=== PATIENT | male | born 1940 | race Caucasian/White ===

== ENCOUNTER 2017-04-12 08:22 | Observation (INO) | payer MEDICARE ==
[2017-04-12] MEDS ORDERED: Lidocaine 1% (PF) 30 ML VIAL ONE (10:04)
[2017-04-12] MEDS ORDERED: Adacel (T-DAP) 0.5 ML VIAL ONE ×2 (10:46→11:39)
--- NOTE | 2017-04-12 11:30 | CT ---
CT OF THE CERVICAL SPINE WITHOUT CONTRAST: Date: 04/12/17 COMPARISON: None. HISTORY: Fall this morning with neck pain. TECHNIQUE: Multiple contiguous axial images were obtained in a CT of the cervical spine without contrast. Sagit sukh and coronal reformats were performed. FINDINGS: There is an oblique fracture through the odontoid process of C2. This is moderately displaced. The o ther vertebral bodies demonstrate normal height and alignment without other fractures or dislocation s. Moderate degenerative changes are seen throughout the cervical spine. No prevertebral soft tissue swelling is seen. The posterior facet of C1 on C2 is malaligned with C2 being displaced anteriorly in relation to C1. The other posterior facets are well aligned. Normal alignment of the skull base with the cervical sp ine is seen. There are emphysematous changes in the lung apices. IMPRESSION: Odontoid process fracture with malalignment of posterior facets at C1-2. Dr. Alfredo notified of the findings at 1008 hours on 04/12/17. CODE CR. POS: [facility]
[2017-04-12 11:39] LABS: #Eosinphils 0.2 thou/uL (0.0-0.7); #Monocytes 1.1 thou/uL (0.11-0.59); #Neutrophils 11.6 thou/uL (1.40-6.50); %Basophils 0.2 % (0.0-1.0); %Eosinophils 1.4 % (0.0-10.0); %Lymphocytes 7.4 % (21.0-51.0); Hematocrit 43.8 % (42.0-52.0); Mean Platelet Volume 6.8 fL (7.4-10.4); Red Blood Cell (RBC) Count 4.31 mill/uL (4.70-6.10); White Blood Cell (WBC) Count 13.9 thou/uL (4.8-10.8)
[2017-04-12] MEDS ORDERED: Acetaminophen 325 MG TAB PO PRN (11:42)
[2017-04-12] MEDS ORDERED: Mag-Al 1200 mg/1200 mg/30 ML UDCUP PO PRN (11:42)
[2017-04-12] MEDS ORDERED: Milk Of Magnesia 30 ML UDCUP PO PRN (11:42)
[2017-04-12] MEDS ORDERED: Bisacodyl 5 MG TAB PO PRN (11:42)
[2017-04-12] MEDS ORDERED: Fentanyl 100 MCG/2 ML VIAL ONE (11:46)
[2017-04-12] MEDS ORDERED: traMADol HCl 50 MG TAB PO PRN (11:50)
[2017-04-12] MEDS ORDERED: tiZANidine HCl 4 MG TAB PO PRN (11:51)
[2017-04-12 12:05] LABS: ALT (SGPT) 10 U/L (8-55); AST (SGOT) 31 U/L (5-34); Alkaline Phosphatase 108 U/L (40-150); Anion Gap 12 mmol/L (10-20); BUN (Urea Nitrogen) 29 mg/dL (8.4-25.7); Bilirubin, Total 0.7 mg/dL (0.2-1.2); Calc. Creatinine Clearance 0 mL/min (70-130); Calcium 9.4 mg/dL (7.8-10.44); Carbon Dioxide 24 mmol/L (23-31); Chloride 107 mmol/L (98-107); Estimated GFR-MDRD 67; Globulin 4.1 g/dL (2.4-3.5); Protein, Total 7.5 g/dL (5.8-8.1)
--- NOTE | 2017-04-12 13:10 | CT ---
CT OF THE BRAIN WITHOUT CONTRAST: Date: 04/12/17 COMPARISON: None. HISTORY: Fall, fell face-first. Head trauma. TECHNIQUE: Multiple contiguous axial images were obtained in a CT of the brain without contrast. Coronal reform ats were performed. FINDINGS: The brain is normal in morphology and attenuation without focal lesions or confluent areas of infarc tion. There is no evidence of hydrocephalus, intracranial hemorrhage, or extra-axial fluid collectio n. Soft tissue swelling in the forehead. The underlying calvarium is unremarkable. The visualized paran jackie sinuses and mastoid air cells are well aerated. IMPRESSION: No evidence of acute intracranial abnormality. POS: [facility]
[2017-04-12] MEDS: Sodium Chloride 0.9% 1,000 ML IV SCH (14:08)
[2017-04-12] MEDS: HYDROcodone/Acetaminophen 5/325 mg Tablet PO PRN ×3 (14:09→23:04)
[2017-04-12 14:17] VITALS: BMI 14.2
--- NOTE | 2017-04-12 14:30 | HP ---
DATE OF SERVICE: 04/12/2017 This is a 30-minute initial hospital visit note, in which 30 minutes were spent in review of the robby ging record, evaluation, and examination of the patient, and formulation of plan. Greater than 50% of time was spent in counseling on Jay Mendoza, 1940. CHIEF COMPLAINT: Type 2 odontoid fracture, status post fall with hyperextension injury. HISTORY OF PRESENT ILLNESS: Mr. Mendoza is a very pleasant 76-year-old gentleman. He was going out t o get his newspaper and as soon as he was walking back he tripped over a raised piece of concrete in the ground and essentially face-planted, resulting in a hyperextension injury. He had the immediat e onset of neck pain and was brought in for further evaluation. CT demonstrates an oblique fracture with type 2 odontoid fracture pattern with significant multilevel spondylosis throughout the cervic al spine. The atlantodental interval is preserved while there is some malalignment. Overall, the f racture fragment remains approximated. The patient is in a trauma collar as I am seen him. PHYSICAL EXAMINATION: On exam, he is alert, appropriate. He has an abrasion over his nose and righ t supraorbital region that has been repaired with Dermabond. He follows commands in all 4 extremiti es and is neurologically intact. I replaced his trauma collar with an Roann collar and I educated [facility] he and the family in regards to the necessity of wearing this for the next 3 months at all times . We will arrange for a [place] collar and I have educated the family in regards to how to don and doff that collar when it is to be used for showering. IMPRESSION AND PLAN: We will arrange for a head CT as the patient is on a baby aspirin. He has bailey luis armando 3-vessel blockage and sees Dr. Diez. He was going to undergo cardiac catheterization in a couple weeks, but I would hold off on this given the patient's acute cervical fracture. If his head CT demonstrates intracranial blood products, I will likely want to admit him and just watch him ove rnight and hold the aspirin. If he does not have evidence of intracranial blood products, I would b e fine with him staying on aspirin and dismissal with a follow up in my clinic in 2 weeks including upright AP, lateral and open mouth odontoid cervical spine x-rays. Again, the family and the patien t understand that the collar duration is likely going to be at all times for the next 3 months. We will follow up on the head CT. DIAGNOSIS: Type 2 odontoid fracture, status post fall.
[2017-04-12] MEDS ORDERED: FLU VACC TS2017-18 (>65YR) 0.5 ML SYRINGE IM ONE (21:00)
[2017-04-12] MEDS ORDERED: Simvastatin 5 MG TAB PO SCH (21:00)
[2017-04-12] MEDS: Docusate 100 MG CAP PO SCH (21:19)
[2017-04-13] MEDS: Sodium Chloride 0.9% 1,000 ML IV SCH (01:18)
[2017-04-13] MEDS: Docusate 100 MG CAP PO SCH (08:02)
[2017-04-13] MEDS: HYDROcodone/Acetaminophen 5/325 mg Tablet PO PRN (08:03)
[2017-04-13] MEDS ORDERED: Mirtazapine 15 MG TAB PO SCH (09:00)
[2017-04-13 09:47] VITALS: BP 122/66; TEMP 98.1
--- NOTE | 2017-04-13 11:12 | CT ---
CT OF THE BRAIN WITHOUT CONTRAST: Date: 04/13/17 COMPARISON: 04/12/17. HISTORY: Fall, with acute subdural hemorrhage. TECHNIQUE: Multiple contiguous axial images were obtained in a CT of the brain without contrast. FINDINGS: There are calcifications seen along the falx. There is hyperdensity of the tentorium which likely al so represents calcifications. The slightly asymmetric increased density along the left aspect of the tentorium is stable and most likely represents calcifications rather than blood. There are a few sc attered hypodensities in the subcortical and periventricular white matter, likely secondary to small vessel ischemic disease. There is no evidence of hydrocephalus, intracranial hemorrhage, or extra-a xial fluid collection. The calvarium and overlying soft tissues are unremarkable. The visualized paranasal sinuses and mast oid air cells are well aerated. IMPRESSION: No evidence of acute intracranial abnormality. POS: [facility]
--- NOTE | 2017-04-13 13:12 | PRG ---
DATE OF SERVICE: 04/13/2017 Mr. Mendoza is hospital day #2, having sustained a fall causing a type 2 odontoid fracture and a very small tentorial subdural hematoma. The patient does have complaints of posterior neck pain and a sl ight amount of headache, but otherwise states he is improved from yesterday. He has been wearing hi s [place] collar at all times. He remained at neurologic baseline with good strength in the bilateral upper and bilateral lower extremities. His repeat head CT from today shows stable tentorial subdur al hematoma with perhaps the new component of right frontal subdural hematoma. I discussed this wit h the patient and his at bedside. At this time, he is stable for discharge. We will arrange f or appropriate outpatient followup appointments. He needs to wear his [place] collar at all times and I have ordered a [place] collar for showers. We also order a rolling walker and shower chair for him. Appropriate pain medications are also written for the patient. Discussed activity restric tions with the patient and his as well as nursing staff. We will arrange for a 2-week followup appointment with a noncontrast head CT and upright AP and lateral cervical spine and open mouth odo ntoid cervical spine x-rays. Again, although this was discussed with the patient and his and t efrem are pleased with his outcome thus far. Also, of note, the patient's potassium was 5.4 yesterday , but a re-draw this morning shows that it is trending downward at 4.5 and within normal range. He is stable for discharge.
--- NOTE | 2017-04-13 21:58 | DIS ---
DISCHARGE DIAGNOSES: 1. Neck pain, status post fall with type 2 odontoid fracture. 2. Tentorial subdural hematoma. 3. Hyperkalemia. HOSPITAL COURSE: Mr. Mendoza was admitted to [facility] from the emergency room on 7 having sustained a fall at his home. He subsequently sustained a small tentorial subdural hematom a and a type 2 odontoid fracture. He was placed in an [place] collar and his aspirin was held overnig ht. He was on the stroke unit overnight without significant events other than some hyperkalemia. Pollo fernandez lab work was redrawn on the morning of 04/13/2017 and shown to be 4.5 within the normal range. Pollo yanes also had a repeat head CT on 04/13/2017 showing a stable tentorial subdural hematoma with a new ve ry small component of right frontal subdural hematoma. The patient's pain was under satisfactory co ntrol at the time of discharge and appropriate post-injury restrictions were reviewed with the patie juanito and his . Appropriate outpatient followup appointments were scheduled with Neurosurgery and the patient was discharged home again in satisfactory condition. Ample opportunity was given to the patient and his to discuss their questions and concerns.
== END 2017-04-13 12:14 | disposition home or self-care (01) ==
LOC: ERS 08:22 → 2SE 13:24
PROVIDERS: ADMIT Surgery; ATTEND Surgery
DX: S12.110A Anterior displaced Type II dens fracture, initial encounter for closed fracture (principal); S06.5X0A Traumatic subdural hemorrhage without loss of consciousness, initial encounter; E87.5 Hyperkalemia; Z88.8 Allergy status to other drugs, medicaments and biological substances; Z79.899 Other long term (current) drug therapy; Z87.891 Personal history of nicotine dependence
CPT/HCPCS: 12011; 36415; 70450; 72125; 80053; 84132; 85025; 90471; 90682; 90715; 93005; 96361; 96374; G0008; G0378; J2001; J3010; Q2036

== ENCOUNTER 2017-04-16 11:39 | Inpatient (IN) | payer MEDICARE ==
[2017-04-16] MEDS ORDERED: Morphine 2 MG/ML SYRINGE ONE (11:56)
[2017-04-16] MEDS ORDERED: Ondansetron HCl/PF 4 MG/2 ML Vial ONE (11:56)
--- NOTE | 2017-04-16 12:22 | RAD ---
LEFT HIP TWO VIEWS: HISTORY: Injury. Slipped and fell. COMPARISON: None. FINDINGS: Intertrochanteric fracture of the left femur with minimal displacement. The obturator ring appears to be intact. IMPRESSION: Practically nondisplaced intertrochanteric fracture of the left femur. POS: [facility]
--- NOTE | 2017-04-16 12:23 | RAD ---
PELVIS ONE VIEW: HISTORY: Slipped and fell. Injury. COMPARISON: None. FINDINGS: An intertrochanteric fracture of the left femur without significant displacement. The obturator rin g is intact. IMPRESSION: Nondisplaced intertrochanteric fracture, left femur. POS: [facility]
[2017-04-16] MEDS ORDERED: Ondansetron ODT 4 MG TAB PO PRN (12:57)
[2017-04-16] MEDS ORDERED: Bisacodyl 10 MG SUPP PR PRN (12:57)
[2017-04-16] MEDS ORDERED: Milk Of Magnesia 30 ML UDCUP PO PRN (12:57)
[2017-04-16] MEDS ORDERED: traMADol HCl 50 MG TAB PO PRN ×2 (12:57)
[2017-04-16] MEDS ORDERED: Ondansetron HCl/PF 4 MG/2 ML Vial IVP PRN (12:57)
[2017-04-16] MEDS ORDERED: Fleet Enema 133 ML BOT PR PRN (12:57)
[2017-04-16] MEDS ORDERED: hydrALAZINE 20 MG/ML VIAL SLOW IVP PRN (13:04)
[2017-04-16] MEDS ORDERED: Cyclobenzaprine 10 MG TAB PO PRN (13:05)
--- NOTE | 2017-04-16 13:25 | RAD ---
PORTABLE AP CHEST: Date: 04-16-17 History: Pre-operative evaluation for hip fracture. Comparison: 10-21-16 FINDINGS: There is increased interstitial thickening involving the lungs bilaterally suggesting chronic inters titial fibrotic lung changes. There is a wedge shaped area of opacification in the right upper lobe and right lung apex which does represent an interval change from prior study on 10-21-16. This could be related to interval development of right upper lobe pneumonia. However, follow up to complete res olution is recommended. There is a ring like area of increased density in the right lung apex which could be related to overlying artifact. There is diffuse osteopenia. Cardiac silhouette and pulmonary vasculature are within normal limits. IMPRESSION: 1. Interval development of parenchymal opacity in the right upper lobe and right lung apex which may be related to interval development of pneumonia. Follow up to complete resolution is recommended to exclude neoplastic process. There was no parenchymal opacification seen in this region on study of 10-21-16. 2. Chronic interstitial fibrotic lung changes. Probable emphysematous changes in the upper lobes. 3. Ring like area of increased density right lung apex which could potentially represent overlying a rtifact and this cannot be further evaluated on this exam. 4. Diffuse osteopenia. POS: [facility]
[2017-04-16] MEDS ORDERED: ISOVUE-370 76%-LOCM 1 ML ONE (13:33)
[2017-04-16 13:46] LABS: #Eosinphils 0.1 thou/uL (0.0-0.7); #Lymphocytes 0.7 thou/uL (1.20-3.40); #Monocytes 1.2 thou/uL (0.11-0.59); #Neutrophils 9.1 thou/uL (1.40-6.50); %Basophils 0.1 % (0.0-1.0); %Eosinophils 0.5 % (0.0-10.0); %Lymphocytes 6.6 % (21.0-51.0); %Monocytes 10.8 % (0.0-10.0); Hematocrit 40.3 % (42.0-52.0); Mean Platelet Volume 6.8 fL (7.4-10.4); Red Blood Cell (RBC) Count 3.98 mill/uL (4.70-6.10); White Blood Cell (WBC) Count 11.1 thou/uL (4.8-10.8)
[2017-04-16 13:54] LABS: PTT 31.7 SEC (22.9-36.1)
[2017-04-16 14:06] LABS: Prothrombin Time 13.8 SEC (12.0-14.7)
[2017-04-16 14:12] LABS: ALT (SGPT) 12 U/L (8-55); AST (SGOT) 15 U/L (5-34); Alkaline Phosphatase 103 U/L (40-150); Anion Gap 7 mmol/L (10-20); BUN (Urea Nitrogen) 24 mg/dL (8.4-25.7); Bilirubin, Total 0.7 mg/dL (0.2-1.2); CK (CPK) 37 U/L (30-200); Calc. Creatinine Clearance 0 mL/min (70-130); Calcium 9.1 mg/dL (7.8-10.44); Carbon Dioxide 31 mmol/L (23-31); Chloride 101 mmol/L (98-107); Estimated GFR-MDRD 73; Globulin 3.5 g/dL (2.4-3.5); Protein, Total 6.7 g/dL (5.8-8.1)
--- NOTE | 2017-04-16 14:12 | CON ---
DATE OF CONSULTATION: 04/16/2017 CHIEF COMPLAINT: Left hip pain. HISTORY OF PRESENT ILLNESS: Mr. Mendoza is a 76-year-old male who has fallen. He fell last week duri ng at which time he sustained an odontoid fracture. He has been on [employer] since then. He lost h is balance, walking in his kitchen today and fell on his left side. He landed on his hip. He susta ined an injury to the left hip and was unable to ambulate or mobilize. EMS taken to the emergency d [facility], a left intertrochanteric femur fracture has been identified. He is currently comfortable lying supine in no apparent distress. Of note, recently he has lost approximately 30 pounds. He i s undergoing workup for a lung lesion as well. He has advanced COPD as well as a history of coronar y artery disease. PAST MEDICAL HISTORY: Includes coronary artery disease, COPD, history of gastric ulcers. PAST SURGICAL HISTORY: Laminectomy, previous left knee arthroscopic surgery, previous hernia repair , previous thumb arthritis surgery, right wrist fracture surgery, nephropexy, and previous cardiac s tent placement. PSYCHIATRIC HISTORY: Negative. SOCIAL HISTORY: The patient denies tobacco, alcohol, or drug use. ALLERGIES: To CHLORPROMAZINE and THORAZINE. MEDICATIONS: The patient takes simvastatin and aspirin. PHYSICAL EXAMINATION: VITAL SIGNS: Have been stable, he has been afebrile, normotensive. HEENT: Normocephalic. The patient does have ecchymosis, which is chronic appearing over the right side of his face and eye. NECK: He is in an [employer] Cervical collar. CARDIOVASCULAR: Pulses palpable and regular peripherally. ABDOMEN: Soft, nontender, and nondistended. RESPIRATORY: Breathing comfortably. MUSCULOSKELETAL: The patient's left leg has pain with motion. He is resting in an externally rotat ed position. He has palpable dorsalis pedis pulse distally. He is able to flex and extend the foot and ankle. IMAGES: X-rays of the left hip demonstrate a nondisplaced intertrochanteric femur fracture. IMPRESSION: Left intertrochanteric femur fracture. PLAN: At this point, the patient would benefit from stabilization of his femur fracture. We will p karena for dynamic hip screw fixation to restore anatomic alignment and stabilize the fracture to allow early mobilization and prevent complications of prolonged bed rest. He will have medical optimizat ion prior to surgery. He will be n.p.o. at midnight. He will have pain control. We will continue his cervical collar. All questions have been answered. We will provide DVT prophylaxis and antibio tic prophylaxis.
[2017-04-16 14:18] LABS: Troponin I Less than 0.010 ng/mL (< 0.028)
[2017-04-16] MEDS ORDERED: cefTRIAXone\\ROCEPHIN 2 GM VIAL ONE (14:22)
[2017-04-16] MEDS: Acetaminophen 500 MG TAB PO SCH ×2 (17:23→23:44)
[2017-04-16] MEDS: Famotidine/PF 20 mg/2ml Vial SLOW IVP SCH (20:00)
--- NOTE | 2017-04-16 22:11 | CT ---
CT CHEST WITH CONTRAST: 04/16/17 HISTORY: Right lung mass. FINDINGS: There is good opacification of the thoracic aorta and the central pulmonary arteries. No evidence of aneurysmal dilatation or dissection of the thoracic aorta is seen. The central pulmonary arteries a re well opacified without filling defects to suggest central pulmonary embolism. No pericardial effu sions are seen. There are tiny bilateral pleural effusions with adjacent mild infiltrate/atelectatic changes. There are extensive emphysematous changes mainly in the upper lungs. There is patchy consolidation i n the right upper lobe and scarring in the left upper lobe. There is an 11 mm right paratracheal med iastinal lymph node. There is compression of thoracic vertebral bodies. Upper abdominal tomograms de monstrate normal appearing adrenal glands. IMPRESSION: 1. Emphysema. 2. Patchy consolidation in the right upper lobe likely due to pneumonia. A followup exam would be helpful after treatment to exclude underlying mass or malignancy. POS: [facility]
[2017-04-17] MEDS ORDERED: CEFAZOLIN/Water 2 GM/20 ML SYRINGE SLOW IVP SCH (00:01)
[2017-04-17] MEDS: Sodium Chloride 0.9% 1,000 ML IV SCH ×3 (03:04→17:28)
[2017-04-17 05:01] LABS: #Eosinphils 0.1 thou/uL (0.0-0.7); #Lymphocytes 1.4 thou/uL (1.20-3.40); #Monocytes 1.4 thou/uL (0.11-0.59); #Neutrophils 8.2 thou/uL (1.40-6.50); %Basophils 0.3 % (0.0-1.0); %Eosinophils 1.4 % (0.0-10.0); %Lymphocytes 12.4 % (21.0-51.0); %Monocytes 12.3 % (0.0-10.0); Hematocrit 37.2 % (42.0-52.0); Mean Platelet Volume 6.9 fL (7.4-10.4); Red Blood Cell (RBC) Count 3.66 mill/uL (4.70-6.10); White Blood Cell (WBC) Count 11.1 thou/uL (4.8-10.8)
[2017-04-17 05:19] LABS: Anion Gap 9 mmol/L (10-20); BUN (Urea Nitrogen) 19 mg/dL (8.4-25.7); Calc. Creatinine Clearance 59 mL/min (70-130); Calcium 8.7 mg/dL (7.8-10.44); Carbon Dioxide 26 mmol/L (23-31); Chloride 104 mmol/L (98-107); Estimated GFR-MDRD 88; Magnesium 1.8 mg/dL (1.6-2.6); Phosphorus 3.2 mg/dL (2.3-4.7)
[2017-04-17] MEDS: Acetaminophen 500 MG TAB PO SCH ×3 (05:28→17:26)
--- NOTE | 2017-04-17 05:38 | HP ---
This is Eliud Hoskins, physician assurance assistant, dictating a history and physical for Dr. Lavelle rosenthal. DATE OF ENCOUNTER: 04/16/2017 ATTENDING PHYSICIAN: Dr. Lavelle Dan. CONSULTING PHYSICIAN: Dr. Fausto Rodriguez from Orthopedics. CHIEF COMPLAINT: Evaluation status post fall. HISTORY OF PRESENT ILLNESS: This is a 76-year-old male, who presented to the ED after a \\\\"controll ed\\\\" fall to the floor after slipping while walking into the other room. The patient reported whil e getting after the shower and putting socks on that had no tread on the bottom and using a walker, attempted to ambulate and able to catch himself and lower himself to the ground slowly, but not slow ly enough onto his left side. At that point, he complained of left hip pain, and then was brought t o the ER. Consequently, he was also seen here on Friday that is for a fall. This is why he is we aring an Kirklin collar due to an odontoid fracture. He was treated and released with Dr. Norris's ex carleen. He reports back pain is improving. Denies any further injury to his head or neck. He was able to explain the entire incident. He had no loss of consciousness. Mostly complains of just pa in in the left hip. REVIEW OF SYSTEMS: All 10 systems reviewed, otherwise stated in HPI were negative. PAST MEDICAL HISTORY: Noted for significant coronary artery disease, COPD, stomach ulcers. PAST SURGICAL HISTORY: Laminectomy x2, left knee, hernia repair, bilateral for humerus repair , nephropexy, heart stent x1. PSYCHIATRIC HISTORY: No psychiatric history. SOCIAL HISTORY: Denies any alcohol or drug use. He is a former tobacco user. He used to smoke cig arettes. LABORATORY DATA: Pending. RADIOLOGIC FINDINGS: Nondisplaced intertrochanteric fracture on the left. PHYSICAL EXAMINATION: VITAL SIGNS: Blood pressure 117/68, heart rate 97, respiratory rate 16, pain 8/10, 96% on room air. HEENT: He is atraumatic, normocephalic. He has healing injuries to the facial area. Kirklin collar is in place. NECK: No JVD, no masses. Trachea is midline. Cervical spine nontender. PULMONARY: Clear bilaterally via auscultation. CARDIOVASCULAR: S1, S2, regular rate and rhythm. ABDOMEN: Soft, nontender, nondistended. EXTREMITIES: No overt deformity to lower extremities, but tenderness to the left side of the pelvis and the right upper extremity is devoid of injury. ASSESSMENT AND PLAN: 1. Status post fall. 2. History of odontoid fracture. 3. Left intertrochanteric fracture. 4. History of coronary artery disease. 5. Acute traumatic pain. 6. History of chronic obstructive pulmonary disease. PLAN: Will be to obtain orthopedic consultation for operative fixation of the hip. Patient has bee n medically optimized and cleared by Dr. Lavelle Dan for surgery for tomorrow, possibly optimize h is pain with p.o. and IV analgesics, gastritis and DVT prophylaxis when appropriate. The patient wi ll be seen at bedside with Dr. Dan as well as agrees with the above plan.
--- NOTE | 2017-04-17 06:37 | CON ---
DATE OF CONSULTATION: 04/16/2017 HISTORY OF PRESENT ILLNESS: Jay Mendoza is a very pleasant 76-year-old gentleman unfortunately with multiple medical problems who has been seeing doctor in [place] for many years until he moved here locally. He apparently sustained a fall and fractured his left hip. He is due to have a surgery do nm tomorrow. Additionally, he fell several weeks ago and was hospitalized here for a C2 odontoid fracture. He has a in place. Pulmonary-tobin he has smoked at least pack to pack and half for most of his life though he has quit smoking 20 years ago. His Lost And Found Clerk in [place] stated that Mr. Mendoza was clearly end-stage pulm onary disease. Although, he is denying any difficulty breathing, coughing or wheezing, he says he walks daily to [employer] his newspaper up to the mail box. PAST MEDICAL HISTORY: Reported otherwise for multiple medical problems includin. gastric ulcer colitis. 2. History of coronary artery disease. 3. Peripheral vascular disease. 4. History of arthritis. 5. History of chronic obstructive pulmonary disease. PREVIOUS SURGERIES: Included laminectomy, left knee hernia, previous cardiac stents. MEDICINE FROM HOME: Includes tramadol, tizanidine, simvastatin, Protonix 40, mirtazapine 15, hydroc odone. ALLERGIES: THORAZINE. SOCIAL AND FAMILY HISTORY: Unremarkable PHYSICAL EXAMINAITION: VITAL SIGNS: O2 sat 92, pulse 98, temperature 98, respiratory rate 14, blood pressure 130/66. CHEST: Decreased breath sounds, no wheezing. CARDIAC: Normal S1, S2. No gallops. ABDOMEN: Soft, no masses. X-RAY FINDINGS: X-ray shows a large right upper lung mass with volume loss. LABORATORY DATA: White count 11,000, H\T\H is 13 and 48, platelet count is 51. Lytes are normal. IMPRESSION: 1. Status post fall with left hip fracture. 2. Recent fracture odontoid. 3. Cervical neck fracture, surgically corrected by neurosurgery. 4. Coronary artery disease. 5. Chronic obstructive pulmonary disease. 6. Lung mass. 7. Weight loss. 8. Gastric ulcers. PLAN: I am going to review his CT from [facility] if he has had one. If not, one will be orde red. No further workup until some of his medical problems stabilize. In the meantime, I am going to start him on some neb treatments. Supportive care. We will follow.
[2017-04-17] MEDS: Famotidine/PF 20 mg/2ml Vial SLOW IVP SCH (09:12)
[2017-04-17 12:08] VITALS: BMI 14.2
[2017-04-17] MEDS ORDERED: CEFAZOLIN/Water 2 GM/20 ML SYRINGE ONE (13:10)
--- NOTE | 2017-04-17 14:21 | PRG ---
DATE OF SERVICE: 04/17/2017 SUBJECTIVE: CT of the chest showed extensive emphysema changes, evidence of multiple kira-emphysema tous infected blebs, looks like multiple cavities. It is unclear whether he has a mass. PHYSICAL EXAMINATION: VITAL SIGNS: His sats are 100%, respirations 16, temperature 97, blood pressure 132/75. CHEST: Decreased breath sounds without any wheezing. CARDIAC: Normal S1, S2. ABDOMEN: Soft, no masses. LABORATORY DATA: White count 11,000, hemoglobin and hematocrit 12 and 37, platelet 259. Electrolyt es are normal. IMPRESSION AND PLAN: Severe chronic obstructive pulmonary disease, right upper lung probably looks infectious more than neoplastic. Probably start him on some antibiotics tomorrow. He is already [facility] for his surgery. Continue neb treatments and supportive care. We will follow.
[2017-04-17] MEDS ORDERED: PHENYLEPHRINE-NS 100 MCG/ML 10 ML SYRINGE ONE (14:29)
[2017-04-17] MEDS ORDERED: Ondansetron HCl/PF 4 MG/2 ML Vial IVP PRN (15:03)
[2017-04-17] MEDS ORDERED: Promethazine HCl 25 MG/ML VIAL IM PRN (15:03)
[2017-04-17] MEDS ORDERED: Promethazine HCl 25 MG/ML VIAL SLOW IVP PRN (15:03)
[2017-04-17] MEDS ORDERED: Fentanyl 100 MCG/2 ML VIAL ONE ×2 (15:43→16:10)
[2017-04-17 15:44] LABS: Oxyhemoglobin 88.7 % (94.0-97.0); Pressure Support 18 cmH2O; Sodium 134 mmol/L (135-148); Vent NO
[2017-04-17 15:45] LABS: Mode BIPAP
[2017-04-17] MEDS ORDERED: Morphine 10 MG/ML VIAL ONE (15:58)
--- NOTE | 2017-04-17 16:00 | RAD ---
LEFT HIP RADIOGRAPHS 2 VIEWS: DATE: 04/17/17. PROVIDED CLINICAL HISTORY: ORIF. FINDINGS: Comparison is made with the examination performed 08/17/16. Interval open reduction internal fixatio n of previously described intratrochanteric left proximal femoral fracture. IMPRESSION: As above. POS: [facility]
[2017-04-17] MEDS ORDERED: Propofol 500 MG/50 ML VIAL ONE (16:10)
[2017-04-17] MEDS ORDERED: Lorazepam 2 MG/ML VIAL SLOW IVP PRN (16:29)
[2017-04-17] MEDS ORDERED: Fentanyl 20 MCG/ML 250 ML IVPB SCH (16:29)
[2017-04-17] MEDS ORDERED: DISCONTINUE PREVIOUS NARCOTIC PAIN MEDICATIONS AND BENZODIAZEPINES FS SCH (16:29)
[2017-04-17] MEDS ORDERED: Propofol 1,000 MG/100 ML VIAL IV PRN (16:29)
[2017-04-17 17:13] LABS: Mechanical Tidal Volume 450 ml; Modified Allen's Test POSITIVE; Oxyhemoglobin 96.2 % (94.0-97.0); Sodium 135 mmol/L (135-148); Vent YES
[2017-04-17 17:14] LABS: Mode SIMV; Pressure Support 10 cmH2O
--- NOTE | 2017-04-17 17:20 | RAD ---
PORTABLE CHEST: DATE: 04/17/17. PROVIDED CLINICAL HISTORY: Respiratory distress. FINDINGS: Comparison is made with the study dated 04/16/17. Cardiac and mediastinal silhouette is unchanged i n appearance. There is persistent consolidation in the right upper lung zone. Extensive emphysemat ous changes are redemonstrated. There is no definite evidence for pleural fluid or pneumothorax. IMPRESSION: Stable radiographic appearance of the chest. POS: [facility]
--- NOTE | 2017-04-17 17:40 | RAD ---
SINGLE VIEW OF CHEST: Date: 04/17/17 COMPARISON: 04/17/17 at 1508 hours. 04/16/17. Chest CT dated 04/16/17. HISTORY: Status post intubation. Postoperative respiratory issued with shortness of breath. FINDINGS: Single view of the chest shows normal sized cardiomediastinal silhouette. An endotracheal tube is se en with its tip approximately 2.3 cm from the cheikh. Increased interstitial lung markings are prese nt. There is an area opacity projecting over the right upper lobe. No pleural effusion is seen. Hype rexpansion of the lungs is likely secondary to COPD. IMPRESSION: 1. Appropriate position of endotracheal tube. 2. Stable area of opacity in the right upper lobe likely represents an area of scarring when compar ed to the prior chest CT. POS: [facility]
--- NOTE | 2017-04-17 18:18 | OP ---
DATE OF OPERATION: 04/17/2017 OPERATION PERFORMED: Open reduction and fixation of left intertrochanteric femur fracture. PREOPERATIVE DIAGNOSIS: Left intertrochanteric femur fracture. POSTOPERATIVE DIAGNOSIS: Left intertrochanteric femur fracture. COMPLICATIONS: None. ESTIMATED BLOOD LOSS: 100 mL. SURGEON: Fausto Rodriguez M.D. MILLINERY TEACHER: Hayden Odom PA-C. INDICATIONS: Mr. Mendoza is a 76-year-old male who fell. He sustained a fracture of the left femur. He has been indicated for fixation of the fracture to restore mobilization and prevent complication s of prolonged bed rest. Risks have been reviewed in detail. He has elected to proceed with the op eration. DESCRIPTION OF PROCEDURE: Mr. Mendoza was identified in the preoperative holding area. His correct e xtremity was marked. He was carried to the operating room. He was positioned supine. He was place d on the fracture table. Spinal anesthetic was administered. The left lower extremity was prepped and draped in sterile fashion. At this point, we performed a lateral incision, dissected down to the fascia. We exposed the latera l cortex of the femur. At this point, we used intraoperative x-ray to reduce the fracture. We then placed a guidewire in the center-center position of the femoral head. This was used with the 135 a ngle guide. Once we had an appropriate position, we overdrilled the guidewire with our triple reame r. We then inserted our femoral head screw. Next, we impacted our 3-hole [employer] DHS plate. Three screws were placed through the plate. This completed fixation. We took final x-ray images. We th oroughly irrigated. We then closed with 0 Vicryl suture, 2-0 Vicryl suture and mc for the skin . A sterile dressing was applied at this point. The patient was taken to the recovery room in good condition without complication.
[2017-04-17] MEDS ORDERED: Furosemide 20 MG/2 ML VIAL SLOW IVP SCH (18:45)
[2017-04-17] MEDS: CEFAZOLIN/Water 2 GM/20 ML SYRINGE SLOW IVP SCH (20:13)
--- NOTE | 2017-04-17 21:48 | PRG-2 ---
DATE OF SERVICE: 04/17/2017 SUBJECTIVE: This is a 76-year-old man who after had a fall on the floor after slipping was found to have left intertrochanteric fracture. The patient reports feeling well this morning. Pain is bein g well controlled. C-collar in place due to previous neck fracture. He is resting in bed. Plan fo r him is to go to surgery today as his pain is being well controlled as no other concerns or complai nts at this time. Questions answered. OBJECTIVE: GENERAL: He is alert and oriented x3, resting in bed. VITAL SIGNS: Temperature is 97.5, pulse of 82, respirations 16, O2 sat is 100%, and blood pressure is 132/75. HEENT: Atraumatic and normocephalic. He has some healing injuries and bruising to the facial area. NECK: [place] collar is in place. Cervical spine is nontender. PULMONARY: Clear bilaterally to auscultation. Symmetric chest expansion. Unlabored breathing. CARDIOVASCULAR: Regular rate and rhythm. No murmurs or gallops. ABDOMEN: Soft, nontender, nondistended. No masses. Bowel sounds heard in all 4 quadrants. EXTREMITIES: Able to move upper and lower extremities bilaterally. Does have some pain in his left hip right now. LABORATORY DATA: White blood cell count 11.1, hemoglobin is 12.2, hematocrit 37.2, and platelet cou nt is 229. Sodium is 135, potassium is 4.4, chloride was 104, carbon dioxide is 26, BUN 19, creatin ine is 0.84, glucose is 95, calcium is 8.7, phosphorus , and magnesium was 1.8. IMAGING: Hip x-ray on 04/17/2017 showed interval open reduction and internal fixation of previously described intertrochanteric left proximal femoral fracture. There is an echocardiogram on 04/17/20 17 which showed systolic function 60-65%. E/A with flow reversal noted suggestive of diastolic dysf unction. ASSESSMENT AND PLAN: 1. Status post fall. 2. History of odontoid fracture. 3. Left intertrochanteric fracture. 4. History of coronary artery disease. 5. Acute traumatic pain. 6. History of chronic obstructive pulmonary disease. CONSULTATIONS: Orthopedic Surgery. PLAN: He will go to the OR today for fixing the hip. Dr. Yun has been consulted with Pulmonology due to chronic obstructive pulmonary disease to get him approved for surgery today. Per Dr. Yun's recommendations, we will start him on antibiotics for his lung infiltrate. We will continue to kristen ge pain IV until surgery and then we will adjust pain medication as needed. For postop, the patient 's pain was being well controlled this morning. We will continue to monitor vital signs and we will check labs in the morning. Replace electrolytes as needed. The patient was seen and plan of care was discussed with Dr. Lavelle Dan.
--- NOTE | 2017-04-17 21:51 | OP ---
DATE OF PROCEDURE: 04/17/2015 PREOPERATIVE DIAGNOSIS: Acute hypercapnic respiratory failure. POSTOPERATIVE DIAGNOSIS: Acute hypercapnic respiratory failure. PROCEDURES PERFORMED: Fiberoptic bronchoscopy. INDICATIONS FOR PROCEDURE: A 76-year-old man who is status post ground level fall sustaining a hip fracture. The patient underwent operative intervention for the hip fracture today. Postoperatively in the postanesthesia care unit, the patient developed worsening hypoventilation which progressed t o acute hypercapnic respiratory failure. He was intubated and placed on a mechanical ventilatory elias pport. It was decided to perform a bronchoscopy to rule out mucous plugs as an etiology of this res piratory failure. The patient has a preoperative history of severe COPD. FINDINGS: Consistent with copious thin secretions. No mucous plugs noted. DESCRIPTION OF PROCEDURE: This was deemed emergent and the patient is on full mechanical ventilator y support. Placed on a supine position. A fiberoptic bronchoscope was introduced through the endot ragini tube and advanced to visualize the cheikh. The scope was advanced first to the left upper a nd left lower lobes and finally advanced to the right upper lobe, bronchus intermedius, and right lo wer lobes. Copious amount of thin secretions was seen in all lung garcia. No mucous plugs noted. I obtained some sample which was sent to Microbiology. The patient tolerated this procedure without any apparent complications and remains hemodynamically stable following the completion of the proce dure. FINAL DIAGNOSIS: Acute pulmonary edema, likely cardiogenic in nature.
[2017-04-18] MEDS: Sodium Chloride 0.9% 1,000 ML IV SCH ×2 (03:56→17:22)
[2017-04-18] MEDS: CEFAZOLIN/Water 2 GM/20 ML SYRINGE SLOW IVP SCH (04:42)
[2017-04-18 07:17] LABS: Mechanical Tidal Volume 450 ml; Mode SIMV/PSV; Modified Allen's Test NOT DONE; Pressure Support 10 cmH2O; Sodium 137 mmol/L (135-148); Vent YES
[2017-04-18] MEDS ORDERED: cefTRIAXone\\ROCEPHIN 2 GM in Sodium Chloride 0.9% 100 ML IVPB SCH (09:00)
[2017-04-18 09:02] LABS: Anion Gap 14 mmol/L (10-20); BUN (Urea Nitrogen) 20 mg/dL (8.4-25.7); Calc. Creatinine Clearance 48 mL/min (70-130); Calcium 8.5 mg/dL (7.8-10.44); Carbon Dioxide 22 mmol/L (23-31); Chloride 104 mmol/L (98-107); Estimated GFR-MDRD 84; Magnesium 1.6 mg/dL (1.6-2.6); Phosphorus 2.7 mg/dL (2.3-4.7)
--- NOTE | 2017-04-18 09:11 | PRG ---
DATE OF SERVICE: 04/18/2017 This morning he is awake, responsive, on the vent. PHYSICAL EXAMINATION: VITAL SIGNS: Pulse 81, blood pressure 92/41, O2 sat 100% on 30%, respirations 21. I's and O's are 1757 in, 475 out. CHEST: Chest reveals decreased breath sounds, no wheezing. CARDIAC: Normal S1, S2, no gallops. ABDOMEN: Soft. No masses. His pCO2 69, pH 7.15. He was intubated. BNP 774. NEUROLOGIC: He is awake, responsive. LABORATORY DATA: White count 9000, H\T\H 8 and 27, platelet count is normal. His chemistry is unre markable. BNP is elevated. IMPRESSION: 1. Respiratory failure. 2. End-stage chronic obstructive pulmonary disease. 3. Tobacco abuse. 4. Right upper lung pneumonia. 5. Elevated BNP. Do diagnostic bronchoscopy, hopefully try and wean and extubate today. I am surprised his EF was no rmal, but his BNP is markedly elevated. We will continue aggressive neb treatments, steroids. I will follow. One-half hour critical care time excluding the bronchoscopy.
--- NOTE | 2017-04-18 09:37 | OP ---
DATE OF PROCEDURE: 04/18/2017 OPERATIVE PROCEDURE: Bronchoscopy, diagnostic. SURGEON: Dr. Jalen Yun INDICATION: Right upper lung cavitary infiltrate, rule out tuberculosis, fungus, and malignancy. POSTOPERATIVE DIAGNOSIS: Right upper lung cavitary infiltrate, rule out tuberculosis, fungus and ma lignancy. PROCEDURE: After informed consent from the family, adapter put on the endotracheal tube, the patien t 100% FIO2. The flexible bronchoscope was passed. Distal trachea was visualized which was normal. The left lung was inspected initially. The left upper and left lower lobe visualized without any obvious endobronchial obstruction, blood or pus. Right lung was inspected, upper lobe surprisingly no endobronchial obstruction or blood was seen. The rest of the right lower lobe was normal. There after, the right upper lung was lavaged with normal saline, a total of 60 mL. Washings were sent fo r AFB smear and culture, fungal smear and culture, routine Gram stain and C\T\S. The patient tolerated the procedure well. Will try a trial of CPAP. Hopefully, we can extubate him at a later time.
[2017-04-18] MEDS: Cefepime 1 GM, Admixture Fee 1 EACH in Sodium Chloride 0.9% 100 ML IVPB SCH ×2 (09:45→20:12)
[2017-04-18] MEDS ORDERED: Magnesium Sulfate 4 GM, Sodium Phosphate 30 MMOL in Sodium Chloride 0.9% 250 ML 250 ML IVPB SCH (13:00)
--- NOTE | 2017-04-18 14:05 | PRG ---
DATE OF SERVICE: 04/18/2017 SUBJECTIVE: Mr. Mendoza was just extubated. He is awake and alert. He reports adequate pain control . He moves all extremities and answers questions appropriately. OBJECTIVE: VITAL SIGNS: Includes blood pressure 118/67, pulse 85, respiratory rate is 24, and oxygen saturatio n is 98%. HEENT: Reveals normocephalic and atraumatic. HEART: Reveals regular rate and rhythm, no murmurs or gallops auscultated. LUNGS: Reveals scattered rhonchi. Breathing regular and unlabored. ABDOMEN: Soft, nontender, and nondistended. EXTREMITIES: Reveals 2+ radial and pedal pulses bilaterally. No ankle edema is present. NEUROLOGIC: Reveals no focal deficits present. LABORATORY DATA: Includes, sodium 136, potassium 4.2, chloride is 104, bicarbonate 22, BUN 20, crea tinine 0.88, glucose is 100, magnesium 1.6, and phosphorus is 2.7. IMPRESSION: 1. Postoperative day #1, status post open reduction and internal fixation hip fracture. 2. Acute hypomagnesemia. 3. Acute hypophosphatemia. PLAN: 1. Correct abnormal electrolytes. 2. Increase activity per physical and occupational therapy.
[2017-04-19] MEDS ORDERED: Fentanyl 100 MCG/2 ML VIAL SLOW IVP PRN (01:53)
[2017-04-19] MEDS ORDERED: Acetaminophen 1,000 MG in Premix Bag 1 BAG IVPB PRN (01:53)
[2017-04-19] MEDS: Sodium Chloride 0.9% 1,000 ML IV SCH ×2 (02:00→19:36)
[2017-04-19 05:40] LABS: Anion Gap 10 mmol/L (10-20); BUN (Urea Nitrogen) 21 mg/dL (8.4-25.7); Calc. Creatinine Clearance 52 mL/min (70-130); Calcium 8.4 mg/dL (7.8-10.44); Carbon Dioxide 25 mmol/L (23-31); Chloride 106 mmol/L (98-107); Estimated GFR-MDRD Greater than 90; Magnesium 2.6 mg/dL (1.6-2.6); Phosphorus 2.7 mg/dL (2.3-4.7)
[2017-04-19] MEDS ORDERED: DC Sedation Protocol FS ONE (08:13)
[2017-04-19] MEDS: Fluticasone Propionate Nasal Spray 16 gm Bottle NASAL SCH ×2 (09:19→21:07)
[2017-04-19] MEDS: Cefepime 1 GM, Admixture Fee 1 EACH in Sodium Chloride 0.9% 100 ML IVPB SCH ×2 (09:19→21:06)
[2017-04-19] MEDS ORDERED: Acetaminophen 500 MG TAB PO PRN (10:31)
--- NOTE | 2017-04-19 16:47 | PRG ---
DATE OF SERVICE: 04/19/2017 SUBJECTIVE: A 76-year-old gentleman post-extubation, no distress. PHYSICAL EXAMINATION: VITAL SIGNS: Sats are 98% on room air, blood pressure 130/70, respiratory rate 18, pulse 80. CHEST: Decreased breath sounds, no wheezing. CARDIAC: Normal S1, S2. LABORATORY DATA: His bronch washings are growing Enterobacter sensitive to the present Maxipime he is on. Electrolytes are normal. IMPRESSION: 1. Right upper lung pneumonia. 2. Chronic obstructive pulmonary disease. He is stable enough to be transferred out of the ICU. Continue antibiotics, continue steroids. We will follow.
[2017-04-19] MEDS: traMADol HCl 50 MG TAB PO PRN (19:28)
--- NOTE | 2017-04-19 21:38 | PRG ---
DATE OF SERVICE: 04/19/2017 SUBJECTIVE: Mr. Mendoza is hospital day #4, post-extubation day #1. Yesterday, the patient was extub ated. He had originally been admitted status post fall and he underwent an open reduction and inter nal fixation of his hip fracture. Overnight, the patient had no issues other than some discomfort a t his fracture site, which was easily controlled with nonnarcotic pain medications. This morning, t he patient underwent evaluation by Speech Therapy and they made recommendations for pureed diet or n ectar thick liquids. The patient otherwise had no complaints. He follows simple commands and is ot herwise doing well. OBJECTIVE: VITAL SIGNS: Temperature is 98.4, heart rate 91, blood pressure 130/72, respirations 17, oxygen sat uration is 94% on room air. HEENT: Unremarkable. LUNGS: Scattered rhonchi that improves with cough. The patient has a moderate cough when encourage d. HEART: Regular rate and rhythm. ABDOMEN: Soft, flat, nontender with active bowel sounds. EXTREMITIES: Neurovascularly intact x4. LABORATORY DATA: This morning, sodium 137, potassium 3.5, chloride 106, CO2 of 25, BUN 21, creatini ne 0.81, glucose 103, magnesium 2.6, phosphorus 2.7. There are no radiographs this morning. ASSESSMENT AND PLAN: Status post fall resulting in a hip fracture, subsequently has undergone surgi david repair. Plan will be today to continue the patient in the Critical Care Unit at least for the d ay until he gets about the 24-hour sd post-extubation, at which time we may move him to the surgic al floor. Continue pain control, pulmonary toilet and monitor the patient. We will also advance hi s diet as directed by Speech.
[2017-04-20] MEDS: Sodium Chloride 0.9% 1,000 ML IV SCH ×2 (01:47→08:52)
[2017-04-20] MEDS: traMADol HCl 50 MG TAB PO PRN (08:50)
[2017-04-20] MEDS: Cefepime 1 GM, Admixture Fee 1 EACH in Sodium Chloride 0.9% 100 ML IVPB SCH (08:51)
[2017-04-20] MEDS: Fluticasone Propionate Nasal Spray 16 gm Bottle NASAL SCH (08:52)
[2017-04-20] MEDS ORDERED: Sodium Chloride 0.65% Nasal 44 ML BOT EA NARE SCH (09:00)
[2017-04-20] MEDS ORDERED: Polyethylene Glycol 3350 17 GM Packet PO SCH (09:00)
[2017-04-20] MEDS ORDERED: Senokot S 8.6-50 MG TAB PO SCH (09:00)
[2017-04-20] MEDS ORDERED: tiZANidine HCl 4 MG TAB PO PRN (11:28)
[2017-04-20 11:31] VITALS: BP 132/70
--- NOTE | 2017-04-20 11:48 | PRG ---
DATE OF SERVICE: 04/20/2017 SUBJECTIVE: Jay Mendoza this morning is awake, alert, responsive. PHYSICAL EXAMINATION: VITAL SIGNS: Sats are 98%, blood pressure 122/76, pulse 79, respirations 28. CHEST: Bilateral rhonchi. CARDIAC: Sinus tachycardia. ABDOMEN: Soft. NEUROLOGIC: Awake, alert, responsive. IMPRESSION: 1. Respiratory failure. 2. Right upper lung pneumonia. 3. Chronic obstructive pulmonary disease. PLAN: Continue antibiotics, continue neb treatments, continue steroids. She can probably be transferred out of the ICU.
[2017-04-20 15:52] VITALS: TEMP 98
--- NOTE | 2017-04-20 20:11 | DIS ---
DATE OF ADMISSION: 04/16/2017 ADMISSION DIAGNOSES: 1. Status post fall. 2. History of odontoid fracture, still undergoing treatment. 3. Left intertrochanteric fracture, acute. 4. History of coronary artery disease. 5. Acute traumatic pain. 6. History of chronic obstructive pulmonary disease. CONSULTATIONS: Orthopedics, Dr. Rodriguez and Pulmonology, Dr. Yun. PROCEDURES: Open reduction and internal fixation of left intertrochanteric femur fracture. SUMMARY: The patient is a 76-year-old man, who reportedly had a ground-level fall in which he susta ined a left hip fracture. The patient was still undergoing treatment for previous injury, specifica lly an odontoid fracture. The patient has been in a cervical collar. The patient will be taken to the operating room for the above procedure. He would remain on the ventilator overnight postoperati vely and was able to be extubated. Shortly thereafter, the patient did undergo evaluation by Speech Therapy, who recommended pureed diet and nectar thick liquids and he is an aspiration risk. The patrizia cortez was evaluated by Dr. Yun, who suspected an upper lobe pneumonia and placed the patient on Omn icef and also scheduled breathing treatments and a course of steroids. At time of dictation, the patrizia cortez was tolerating a diet. His pain was controlled. He was working with physical and occupationa l therapy and will be transferred to rehabilitation. Patient will continue his antibiotics, steroid s and breathing treatments as per pulmonary's instructions. He will follow up with them in 1 week, sooner as needed. The patient will follow up with Dr. Rodriguez in 2-3 weeks, sooner as needed. Th e patient may follow up with Trauma as needed.
[2017-04-20] MEDS ORDERED: Cefdinir 300 MG CAP PO SCH (21:00)
[2017-04-20] MEDS ORDERED: Simvastatin 20 MG TAB PO SCH (21:00)
[2017-04-21] MEDS ORDERED: predniSONE 20 MG TAB PO SCH (08:00)
[2017-04-21] MEDS ORDERED: Mirtazapine 15 MG TAB PO SCH (09:00)
--- OUTSIDE RECORDS SUMMARY | 2017-04-22 04:35 | XMS | Clinical Summary ---
:1940 Author Organization [facility] Address [address] [place] [id number] Phone Care Team Providers Name Role Phone , Primary Care Provider Unavailable Allergies Not on File Current Medications Not on file Active Problems Not on file Social History Tobacco Use Types Packs/Day Years Used Date Never Assessed Sex Assigned at Date Recorded Not on file Last Filed Vital Signs Not on file Plan of Treatment Not on file Results Not on filefrom Last 3 Months
== END 2017-04-20 15:17 | DRG 480 ==
LOC: ERS 11:39 → SURG A 15:24 → CCU 04-17 16:32
PROVIDERS: ADMIT Surgery; ATTEND Surgery
PROC: 0QS704Z Reposition Left Upper Femur with Internal Fixation Device, Open Approach (ICD-10-PCS; principal; 2017-04-17)
PROC: 0B9C8ZX Drainage of Right Upper Lung Lobe, Via Natural or Artificial Opening Endoscopic, Diagnostic (ICD-10-PCS; 2017-04-17)
PROC: 0B9M8ZX Drainage of Bilateral Lungs, Via Natural or Artificial Opening Endoscopic, Diagnostic (ICD-10-PCS; 2017-04-17)
DX: S72.145A Nondisplaced intertrochanteric fracture of left femur, initial encounter for closed fracture (principal); J96.02 Acute respiratory failure with hypercapnia; J18.9 Pneumonia, unspecified organism; J44.0 Chronic obstructive pulmonary disease with (acute) lower respiratory infection; W18.30XA Fall on same level, unspecified, initial encounter; Y92.013 Bedroom of single-family (private) house as the place of occurrence of the external cause; Z91.81 History of falling; I25.10 Atherosclerotic heart disease of native coronary artery without angina pectoris; G89.11 Acute pain due to trauma; E83.42 Hypomagnesemia; E83.39 Other disorders of phosphorus metabolism; Z87.891 Personal history of nicotine dependence; S12.110D Anterior displaced Type II dens fracture, subsequent encounter for fracture with routine healing; Z88.8 Allergy status to other drugs, medicaments and biological substances
CPT/HCPCS: 12011; 36415; 70450; 71010; 71260; 72125; 72170; 76001; 80048; 80053; 82533; 82550; 82553; 82805; 83735; 83880; 84100; 84132; 84484; 85025; 85610; 85730; 87040; 87070; 87077; 87116; 87186; 87205; 87206; 88112; 88305; 90471; 90682; 90715; 93005; 93010; 93306; 94002; 94003; 94640; 94660; 96361; 96374; 96375; C1713; C1769; G0008; G0378; G0390; G8978-GP-CL; G8979-GP-CI; G8987-GO-CM; G8988-GO-CK; G8996-GN-CM; G8997-GN-CL; J0692; J0696; J1940; J2001; J2270; J2405; J2704; J2920; J3010; J3475; J7050; J7620; P9045; Q2036; S0028

== ENCOUNTER 2017-04-22 10:13 | Emergency (ER) | payer MEDICARE ==
[2017-04-22] MEDS ORDERED: Heparin 0 ML ONE (10:40)
[2017-04-22] MEDS ORDERED: Heparin 10,000 UNITS/1 ML VIAL ONE (10:41)
[2017-04-22] MEDS ORDERED: Sodium Bicarb 50 MEQ/50 ML Abboject 8.4% SYRINGE ONE (20:39)
[2017-04-22] MEDS ORDERED: EPINEPHrine 1 MG/10 ML Abboject SYRINGE ONE (20:39)
[2017-04-22] MEDS ORDERED: Calcium Chloride 1 GM/10 ML Abboject SYRINGE ONE (20:39)
--- OUTSIDE RECORDS SUMMARY | 2017-04-24 05:06 | XMS | Clinical Summary ---
:1940 Author Organization [facility] Address [address] [place] [id number] Phone Care Team Providers Name Role Phone [...]
== END 2017-04-22 10:36 | disposition expired ==
LOC: ERS 10:13
DX: I21.9 Acute myocardial infarction, unspecified (principal); I25.10 Atherosclerotic heart disease of native coronary artery without angina pectoris; J44.9 Chronic obstructive pulmonary disease, unspecified; Z87.891 Personal history of nicotine dependence
CPT/HCPCS: 36416; 92950; 93005; 94760; 96374; 96375; J0171; J1644